=== PATIENT | female | born 1960 | race Caucasian/White ===

== ENCOUNTER 2020-09-10 11:44 | Emergency (ER) | payer SELFPAY ==
[~2020-09-10] VITALS: Ht 157.5 cm; Wt 72.6 kg
[2020-09-10 11:50] VITALS: BP 164/73
[2020-09-10] MEDS ORDERED: FLUORESCEIN SOD 1 MG TEST STRIP OP ONE (12:15)
== END 2020-09-10 12:41 | disposition home or self-care (01) ==
LOC: ER 11:44
DX: S00.11XA Contusion of right eyelid and periocular area, initial encounter (principal); F17.210 Nicotine dependence, cigarettes, uncomplicated; X58.XXXA Exposure to other specified factors, initial encounter; Y93.89 Activity, other specified; Y92.89 Other specified places as the place of occurrence of the external cause; Y99.8 Other external cause status
CPT/HCPCS: 65222